=== PATIENT | female | born 1980 | race Caucasian/White ===

== ENCOUNTER 2016-08-29 22:14 | Emergency (ER) | payer OTHER ==
[~2016-08-29] VITALS: Ht 167.6 cm; Wt 109.1 kg
[~2016-08-29 22:14] MED LIST: CIPRO500 MG PO; DIFLUCAN150 MG PO; DIVALPROEX SOD500 M1 PO; FLAGYL500 MG PO; PERCOCET 5/31 TABLET PO
[2016-08-29] MEDS ORDERED: ROBITUSSIN AC,T10 ML PO (23:07)
[2016-08-29] MEDS ORDERED: AUGMENTIN875 MG PO (23:07)
[2016-08-29] MEDS ORDERED: MEDROL DOSEPAK4 MG PO (23:07)
[2016-08-29 23:23] VITALS: BP 133/67
== END 2016-08-29 23:26 | disposition home or self-care (01) ==
LOC: EME 22:14
DX: J20.9 Acute bronchitis, unspecified (principal)
CPT/HCPCS: 99281; 99283; J7512